=== PATIENT | female | born 1980 | race Caucasian/White ===

== ENCOUNTER 2019-07-26 05:11 | Inpatient (IN) | payer BC ==
--- NOTE | 2019-07-25 20:26 | PCM.LDHP ---
L&D History of Present Illness - General Date of Service: 07/26/19 Admit Problem/Dx: Admission Diagnosis/Problem Admission Diagnosis/Problem 07/25/19 20:11 Maria Isabel is a 39-year-old 3 para 1999 white female with an TASIA of 2019 who was admitted at 39-2/7 weeks on 07/26/2019 for an elective repeat section. Source of Information: Patient History Limitations: Reports: No Limitations - History of Present Illness Introduction:: Maria Isabel is a 39-year-old 3 para 1999 white female with an TASIA of 2019 who was admitted at 39-2/7 weeks on 07/26/2019 for an elective repeat section.She is a centering patient who has had a relatively unremarkable . Her TASIA of 07/31/2019 was determined by a certain last menstrual periods starting 10/24/2018 and supported by an ultrasound done 2018. The repeat section, procedure, risks, benefits, alternatives of care including attempted trial of labor after section for vaginal after section are all discussed with patient. She appears to understand, wishes to proceed and has signed a consent. 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 Patient had menarche at age 18. Cycles every 28-36 days and somewhat irregular. Her last menstrual period which was somewhat irregular was relatively certain started on 10/24/2018. She is not using any control at the time of conception. Her past deliveries include the followin. Female born 02/09/2011 at 40 weeks gestational age9 lbs. 4 oz. section done for malpresentation at [facility]. Child's name is Kitty. 2. Female infant born 05[birth year]21/2013 at 39-4/7 weeks gestational age after an attempt at vaginal at section-9 lbs. 5 oz. section done for failure to progress. Child's name is Pili course. Patient's first visit was at 11-3/7 weeks on 2018. Patient seen on a regular basis in the [facility]. Her weight gain was from 172.8 pounds to 218 pounds for a 46 pound weight increase. Her vital signs are stable throughout the . Her fundal height growth somewhat ahead of schedule at 41 cm fundal height. Estimated weight by clinical exam is 9 pounds. Patient has a history of genital herpes and genital warts. She's been on acyclovir 400 mg by mouth 3 times a day starting at 36 weeks gestational age. No genital warts have been noted. She underwent MRSA evaluation in June 2019 which returned negative. History of sections 2 with first one being done for malpresentation. She declined genetic testing with this . She plans to breast-feed. Strep screen is negative. Laboratory testing and shows blood to be a positive with a negative antibody screen. First hemoglobin is 11.8 g/dL. Platelets are 304,000. She is rubella immune. RPR is nonreactive. Hepatitis B surface antigen and HIV assays were both negative. Gonorrhea and chlamydia assays were both negative. Second trimester labs showed hemoglobin 11.9 g/dL. Platelets are 290,000. One- hour GTT was 82. Culture for MRSA was obtained on 06/27/2019 and was negative. Group B strep screen was negative. Allergies: 1. Augmentin tablets 2. Nickel. Medications: 1. Acyclovir 400 mg by mouth 3 times a day prophylactically since 36 weeks for suppression of genital HSV 2. Triamcinolone 0.1% cream used sparingly twice a day 3. vitamins 1 daily 4. Aspirin low-dose lens1 daily 5. Iron supplementation in the form of ferrous small fate 325 mg by mouth daily Past medical history: 1. Psoriasis 2. History of abnormal Pap smear 3. High blood pressure noted at the end of both previous pregnancies Past surgical history: 1. 2 2. Bunionectomy 3. Tonsillectomy Family history: Mother with a history of depression. Mother with breast and uterine cancer. Father with prostate cancer. Paternal grandmother with breast cancer. Paternal aunt and grandfather with lung cancer. No , bleeding, blood clotting problems or anesthesia problems noted in the family. Social history: Patient is . is Ronen she does not use any significant most alcohol, drugs or tobacco. 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 She lives in the [facility]. Review of systems: In general patient has no complaints. Baby has been active. Patient has not had any significant contractions. Skin: Negative Lungs: No infectious symptoms or shortness of breath Cardiovascular: No chest pain or exercise intolerance Breasts: Changes associated with only. Patient plans to breast-feed.. GI: Negative : Body habitus changes associated with . Musculoskeletal: Negative Neurological: Negative In general the patient is well-developed, well-nourished, pleasant female of stated age in no acute distress. On evaluation on 07/19/2019 blood pressures 138/69. Weight was 218 pounds increased from 172.8 pounds on first visit. Fundal height 1 cm. heart rate 136 beats per minutes. Patient's height is 5 feet 7. Prepregnancy body mass index is 25.4. Skin is warm dry without lesions. HEENT, neck and back within normal limits. Lungs are clear with good breath sounds in all lung dutta. Cardiovascular exam shows regular and rhythm without murmurs. Breast exam on first visit was unremarkable. It is not repeated at the time of her preoperative visit. Abdomen is gravid with fundal height of 41 cm. Baby in vertex presentation by Roscoe maneuver Genital exam declined by the patient. Extremities and neurological exam are grossly within normal limits. - Related Data Allergies/Adverse Reactions: Allergies Allergy/AdvReac Type Severity Reaction Status Date / Time nickel Allergy Rash Verified 05/21/15 00:03 Home Medications: Home Meds Vit No.124/Iron/Folic [ Vitamin Tablet] 1 tab PO DAILY [History] Acetaminophen/oxyCODONE [Percocet 325-5 MG] 2 tab PO Q4H PRN #30 tablet [Rx] Docusate Sodium [Colace] 100 mg PO Q12H PRN #30 cap 05/23/15 [Rx] Lanolin [Lansinoh HPA] 1 applic TOP ASDIRECTED PRN #30 tube 05/23/15 [Rx] Past Medical History Other Genitourinary History: Hx of HSV, HPV, and genital warts Other OB/BYN History: Groin furuncle Other Musculoskeletal History: Sciatica H&P Review of Systems - Review of Systems: Review Of Systems: See Below L&D Exam - Exam Exam: See Below Problem List Initiated/Reviewed/Updated: Yes Assessment/Plan Comment:: 1. 39-2/7 week intrauterine upon admission 07/26/2019 for elective repeat section. 2. Group B strep screen negative 3. Risk factors for the include: Age of 39, history of 2, history of genital herpes on prophylactic acyclovir, history of blood pressure elevation in previous pregnancies on aspirin therapy with this , history of mild anemia, history of cold induced bronchospasm. History of MRSA in the past. MRSA evaluation presently is negative. History of macrosomic babies 2 with size greater than dates with this . 4. Patient plans to breast-feed 5. Maria Isabel has received her influenza vaccination on 04/12/2019. T Dap was given on 05/10/2019. She is rubella immune. Hepatitis B vaccinations are given in October 2008. Plan: 1. Repeat lower uterine segment transverse section through Kiel skin incision under spinal anesthesia. Procedure, risks, benefits, alternatives of care including attempt at are all discussed with patient. She appears to understand, wishes to proceed and has signed a consent. 2. DVT prophylaxis with SCDs 3. Infection prophylaxis with Ancef 2 g IV preopwill give a test dose prior to full dose because of her history of Augmentin allergy. 4. Support breast-feeding decision 5. Evaluation with labs preop consisting of a CBC, type and screen and urinalysis along with an RPR. 6. DVT prophylaxis with SCDs.
[~2019-07-26 05:11] MED LIST: Sodium Chloride 0.9% 10 ML Syringe FLUSH PRN
[2019-07-26] MEDS: Lactated Ringers 1,000 ML IV SCH ×2 (05:52→06:26)
[2019-07-26] MEDS ORDERED: Metoclopramide 10 MG/2 ML SDV IVPUSH ONE (06:00)
[2019-07-26] MEDS ORDERED: Citric Acid/Sodium Citrate Solution 30 ML Cup PO ONE (06:00)
[2019-07-26] MEDS ORDERED: Bupivacaine 0.5% 30 ML SDV ONE (06:53)
[2019-07-26] MEDS ORDERED: ceFAZolin 2 GM in Premix Bag 1 BAG IV ONE (07:00)
[2019-07-26] MEDS ORDERED: Oxytocin/Lactated Ringers 20 UNIT/1,000 ML BAG IV SCH (07:00)
--- NOTE | 2019-07-26 07:02 | PCM.PREANE ---
Preanesthetic Assessment - Procedure Proposed Procedure: Repeat Section - Anesthesia/Transfusion/Family Hx Anesthesia History: Prior Anesthesia Without Reaction Family History of Anesthesia Reaction: No Transfusion History: No Prior Transfusion(s) - Review of Systems General: No Symptoms Pulmonary: Other (recovering after cold, stuffed nose, no cough or breathing difficulty) Cardiovascular: No Symptoms Gastrointestinal: No Symptoms Neurological: No Symptoms Other: Reports: None - Physical Assessment NPO Status Date: 07/25/19 NPO Status Time: 18:30 Vital Signs: Last Vital Signs Temp 98.2 F 07/26/19 05:27 Pulse 81 07/26/19 05:27 Resp 18 07/26/19 05:27 BP 135/80 07/26/19 05:27 Pulse Ox 98 07/26/19 05:27 Height: 1.7 m Weight: 78.381 kg ASA Class: 2 Mental Status: Alert & Oriented x3 Airway Class: Mallampati = 2 Dentition: Reports: Normal Dentition Thyro-Mental Finger Breadths: 4 Mouth Opening Finger Breadths: 3 ROM/Head Extension: Full - Lab Values: Laboratory Last Values WBC 9.48 K/mm3 (3.98-10.04) 07/26/19 05:50 RBC 3.97 M/mm3 (3.98-5.22) L 07/26/19 05:50 Hgb 12.5 gm/dl (11.2-15.7) 07/26/19 05:50 Hct 37.1 % (34.1-44.9) 07/26/19 05:50 MCV 93.5 fl (79.4-94.8) 07/26/19 05:50 MCH 31.5 pg (25.6-32.2) 07/26/19 05:50 MCHC 33.7 g/dl (32.2-35.5) 07/26/19 05:50 RDW Std Deviation 42.1 fL (36.4-46.3) 07/26/19 05:50 Plt Count 280 K/mm3 (182-369) 07/26/19 05:50 MPV 8.7 fl (9.4-12.3) L 07/26/19 05:50 Neut % (Auto) 66.6 % (34.0-71.1) 07/26/19 05:50 Lymph % (Auto) 19.3 % (19.3-51.7) 07/26/19 05:50 [place] % (Auto) 9.7 % (4.7-12.5) 07/26/19 05:50 Eos % (Auto) 3.2 (0.7-5.8) 07/26/19 05:50 Baso % (Auto) 0.3 % (0.1-1.2) 07/26/19 05:50 Neut # (Auto) 6.31 K/mm3 (1.56-6.13) H 07/26/19 05:50 Lymph # (Auto) 1.83 K/mm3 (1.18-3.74) 07/26/19 05:50 [place] # (Auto) 0.92 K/mm3 (0.24-0.36) H 07/26/19 05:50 Eos # (Auto) 0.30 K/mm3 (0.04-0.36) 07/26/19 05:50 Baso # (Auto) 0.03 K/mm3 (0.01-0.08) 07/26/19 05:50 - Allergies Allergies/Adverse Reactions: Allergies Allergy/AdvReac Type Severity Reaction Status Date / Time amoxicillin [From Augmentin] Allergy Rash Verified 07/26/19 05:55 clavulanic acid Allergy Rash Verified 07/26/19 05:55 [From Augmentin] nickel Allergy Rash Verified 05/21/15 00:03 - Blood Blood Available: Yes Product(s) Available: PRBC - Acknowledgements Anesthesia Type Planned: Spinal Pt an Appropriate Candidate for the Planned Anesthesia: Yes Alternatives and Risks of Anesthesia Discussed w Pt/Guardian: Yes Pt/Guardian Understands and Agrees with Anesthesia Plan: Yes PreAnesthesia Questionnaire Other Genitourinary History: Hx of HSV, HPV, and genital warts 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 has history of MRSA - Infectious Disease History Infectious Disease History: Reports: MRSA - Past Surgical History HEENT Surgical History: Reports: Tonsillectomy - SUBSTANCE USE Smoking Status *Q: Never Smoker Second Hand Smoke Exposure: No Recreational Drug Use History: No - HOME MEDS Home Medications: Home Meds Vit No.124/Iron/Folic [ Vitamin Tablet] 1 tab PO DAILY [History] Acyclovir 400 mg PO TID 07/26/19 [History] Triamcinolone Acetonide [Triamcinolone Acetonide 0.1% Oint] 1 applic TOP BID [History] - CURRENT (IN HOUSE) MEDS Current Meds: Current Medications Cefazolin Sodium/Dextrose 2 gm (/ Premix) 50 mls @ 100 mls/hr IV ONETIME ONE Stop: 07/26/19 07:29 Lactated Ringer's (Ringers, Lactated) 1,000 mls @ 125 mls/hr IV ASDIRECTED SILVESTRE Last Admin: 07/26/19 06:26 Dose: 125 mls/hr Oxytocin/Lactated Ringer's (Pitocin In Lr 20 Units/1,000 Ml) 20 unit in 1,000 mls @ 500 mls/hr IV TITRATE SILVESTRE; Protocol Sodium Chloride (Saline Flush) 10 ml FLUSH ASDIRECTED PRN PRN Reason: Keep Vein Open Discontinued Medications Bupivacaine HCl (Marcaine 0.5%) Confirm Administered Dose 30 ml .ROUTE .STK-MED ONE Stop: 07/26/19 06:54 Citric Acid/Sodium Citrate (Bicitra Solution) 30 ml PO ONETIME ONE Stop: 07/26/19 06:01 Metoclopramide HCl (Reglan) 10 mg IVPUSH ONETIME ONE Stop: 07/26/19 06:01
[2019-07-26] MEDS ORDERED: fentaNYL 100 MCG/2 ML SDV ONE (07:20)
[2019-07-26] MEDS ORDERED: Morphine PF 10 MG/10 ML SDV ONE (07:20)
[2019-07-26] MEDS ORDERED: diphenhydrAMINE 50 MG/ML SDV IVPUSH PRN ×2 (07:29→10:23)
[2019-07-26] MEDS ORDERED: fentaNYL 100 MCG/2 ML SDV IVPUSH PRN (07:29)
[2019-07-26] MEDS ORDERED: Ondansetron 4 MG/2 ML SDV IVPUSH PRN (07:29)
[2019-07-26] MEDS ORDERED: Lactated Ringers 1,000 ML ONE ×2 (08:03→08:50)
[2019-07-26] MEDS ORDERED: ceFAZolin 1 GM Vial ONE (08:06)
[2019-07-26] MEDS ORDERED: Oxytocin 10 Units/1 ML SDV ONE ×2 (08:06→08:19)
[2019-07-26] MEDS ORDERED: Ketorolac 30 MG/ML SDV ONE (08:27)
--- NOTE | 2019-07-26 08:45 | PCM.POSTAN ---
POST ANESTHESIA ASSESSMENT - MENTAL STATUS Mental Status: Alert, Oriented - VITAL SIGNS Vital Signs: Last Vital Signs Temp 98.2 F 07/26/19 05:27 Pulse 81 07/26/19 05:27 Resp 18 07/26/19 05:27 BP 135/80 07/26/19 05:27 Pulse Ox 98 07/26/19 05:27 Post op vitals 129/79, HR 79, RR 12, SPO2 98% T 97.3F - RESPIRATORY Respiratory Status: Respiratory Rate WNL, Airway Patent, O2 Saturation Stable, Supplemental Oxygen - CARDIOVASCULAR CV Status: Pulse Rate WNL, Blood Pressure Stable - GASTROINTESTINAL GI Status: No Symptoms - PAIN Pain Score: 0 (post SAB) - POST OP HYDRATION Hydration Status: Adequate & Stable
--- NOTE | 2019-07-26 08:56 | PCM.OPNOTE ---
- General Post-Op/Procedure Note Date of Surgery/Procedure: 07/26/19 Operative Procedure(s): Repeat lower uterine segment transverse section through Pfannenstiel skin incision Findings: Uterus, tubes and ovaries consistent with term . No abnormalities noted. Clear amniotic fluid. Baby in vertex presentation. Weight was 4600 g (10 lbs. 2 oz. Apgars 8 and 9. Baby born at 0801 hrs. male infant. Pre Op Diagnosis: 39 week intrauterine , history of previous section desire for repeat section Post-Op Diagnosis: Same with delivery of viable 4600 g male infant Apgars of 8 and 9 at 0801 hrs. 07/26/2019. Anesthesia Technique: Spinal Other Anesthesia Type: Marcaine 0.5% 20 mL subcutaneous local. Primary Surgeon: Israel Luciano Secondary Surgeon: Stuart Boyce Anesthesia Provider: Vargas Canales Reason Uptwist Spinner Was Necessary: Retraction, assistance, patient safety, quality of care. Fluid Replacement, Intraop: 2,000 Output, Urine Amount: 300 EBL in mLs: 800 Drain/Tube Comments:: Indwelling bladder catheter Condition: Good Free Text/Narrative:: Duration: Approximately 30 minutes Surgery duration: Procedure: The patient is appropriately consented. Patient was transferred to the room and placed in a sitting position. Spinal anesthesia was administered. After confirmation of adequate anesthesia patient was placed in a supine position with a wedge under her right side to facilitate left lateral positioning. The patient was prepped and draped in usual fashion after Guzman catheter was already placed . The anesthetic was checked and found to be adequate. 20 mL of Marcaine 0.5% was injected locally in the Pfannenstiel incision site. The Pfannenstiel skin incision was then made and carried down through skin, subcutaneous and fascial layers. The fascia was then undermined superiorly and inferiorly to allow for adequate operating room. The recti muscles midline and preperitoneal fat was bluntly dissected. Peritoneal cavity was entered longitudinally. The vesicouterine peritoneum was then incised transversely and bladder flap was developed. Myometrium was incised transversely to the level of the amniotic sac. This incision was extended bilaterally in a blunt fashion. The amniotic sac was then ruptured resulting in clear amniotic fluid. A hand is placed in the low uterine segment and the baby's head was brought forth through the incision. The baby was completely delivered using fundal pressure in a routine fashion. The nose and mouth were bulb suctioned. Baby's cord was clamped x2 cut and baby was handed off to attending tire regrooving machine operator Dr Paz. Placenta was expressed after cord blood was obtained. Uterus was then exteriorized to allow for easier closure. The cervix was assessed and found to be dilated adequately to allow egress of blood. The uterus was closed in 2 layers. The first layer a running locked suture of 0 Monocryl, the second layer a running locked vertical mattress suture of 0 Monocryl. [id number] suture was placed at mid incision to control 1 bleeder. Hemostasis confirmed at this time. Sponge instrument needle counts are correct. The uterus was returned to the abdominal cavity and lateral gutters were cleared of blood. Once again sponge needle counts are correct. The anterior abdominal wall was closed with a #1 PDS suture from angle to angle. The subcutaneous area was found to be free of any bleeders. interrupted sutures of 3-0 Monocryl were used to reapproximate the subcutaneous layer.Skin was closed with a running subcuticular stitch of 3-0 Monocryl in a vertical mattress suture fashion using a Dandy needle. Prineo mesh/glue was then applied to further approximate the incision. It should be noted that patient received 2 g of Ancef preoperatively for infection prophylaxis and had Pitocin infused after delivery of the placenta to facilitate uterine contraction. She also had sequential compression stockings in place for DVT prophylaxis. Patient was discharged from the operating room in satisfactory condition.
[2019-07-26] MEDS ORDERED: ePHEDrine 50 MG/ML SDV IVPUSH PRN (10:23)
[2019-07-26] MEDS ORDERED: Naloxone 0.4 MG/ML SDV IVPUSH PRN (10:23)
[2019-07-26] MEDS ORDERED: Docusate Sodium 100 MG Cap PO PRN (10:23)
[2019-07-26] MEDS ORDERED: Dextrose 5%-Lactated Ringers 1,000 ML IV SCH (10:23)
[2019-07-26] MEDS ORDERED: Ondansetron 4 MG/2 ML SDV IV PRN (10:23)
[2019-07-26] MEDS: Ibuprofen 800 MG Tab PO SCH (17:28)
[2019-07-26] MEDS: Acetaminophen/oxyCODONE 325-5 MG Tab PO PRN (19:15)
[2019-07-27] MEDS: Ibuprofen 800 MG Tab PO SCH ×3 (00:56→15:43)
[2019-07-27] MEDS: Acetaminophen/oxyCODONE 325-5 MG Tab PO PRN ×4 (04:51→21:17)
--- NOTE | 2019-07-27 07:42 | PCM48HPAN ---
Post Anesthesia Note - EVALUATION WITHIN 48HRS OF ANESTHETIC Vital Signs in Normal Range: Yes Patient Participated in Evaluation: Yes Respiratory Function Stable: Yes Airway Patent: Yes Cardiovascular Function Stable: Yes Hydration Status Stable: Yes Pain Control Satisfactory: Yes Nausea and Vomiting Control Satisfactory: Yes Mental Status Recovered: Yes Vital Signs: Last Vital Signs Temp 97.5 F 07/27/19 04:26 Pulse 81 07/27/19 04:26 Resp 16 07/27/19 06:00 BP 117/70 07/27/19 04:26 Pulse Ox 93 L 07/27/19 04:26
--- NOTE | 2019-07-27 08:02 | PCM.SN ---
- Free Text/Narrative Note: note: day 1 Patient is doing well in the period. Minimal lochia, voiding well, ambulated without problems. Nursing without concerns. Patient is afebrile, vital signs are stable Abdomen is flat, soft, uterus is below the umbilicus and is firm and nontender. Incision intact, and dry, Prineo mesh in place. Legs are nontender. Hemoglobin 11.5. Platelets 250,000. Assessment: /post day 1 with recovery going well. Plan: Routine /postoperative care. Patient be discharged home within the next 24-48 hours.
[2019-07-28] MEDS: Ibuprofen 800 MG Tab PO SCH ×2 (01:43→07:56)
[2019-07-28 04:33] VITALS: BP 124/71; PULSE 75
[2019-07-28] MEDS: Acetaminophen/oxyCODONE 325-5 MG Tab PO PRN ×2 (05:22→10:37)
--- NOTE | 2019-07-28 09:54 | PCM.DCSUM1 ---
Discharge Summary - Hospital Course Free Text/Narrative:: Maria Isabel is a 39-year-old 3 para 2000 white female with an TASIA of 2019 who was admitted at 39-2/7 weeks on 07/26/2019 for an elective repeat section.She is a centering patient who has had a relatively unremarkable . Her TASIA of 07/31/2019 was determined by a certain last menstrual periods starting 10/24/2018 and supported by an ultrasound done 2018. The repeat section, procedure, risks, benefits, alternatives of care including attempted trial of labor after section for vaginal after section are all discussed with patient. She appears to understand, wishes to proceed and has signed a consent. Patient delivered 10 lbs. 2 oz. male infant with Apgars of 8 and 9 on 07/26/2019. Postoperatively patient is doing well. She is nursing without problems, ambulating well. Pain is under good control with ibuprofen and Percocet. She is afebrile and vital signs are stable. She is desiring discharge home. Diagnosis: Stroke: No - Discharge Data Discharge Date: 07/28/19 Discharge Disposition: Home, Self-Care 01 Condition: Good - Referral to Home Health Primary Care Physician: Kaylyn Thompson NP - Patient Summary/Data Operative Procedure(s) Performed: Repeat lower uterine segment transverse section through Pfannenstiel skin incision - Patient Instructions Diet: Regular Diet as Tolerated (nursing) Activity: As Tolerated (No lifting greater than 15 pounds or driving a car 1 week.) Driving: Do Not Drive Showering/Bathing: May Shower Wound/Incision Care: Keep Operative Site/Wound Site Clean and Dry Notify Provider of: Fever, Increased Pain, Swelling and Redness, Nausea and/or Vomiting - Discharge Plan Home Medications: Home Meds Vit No.124/Iron/Folic [ Vitamin Tablet] 1 tab PO DAILY [History] Triamcinolone Acetonide [Triamcinolone Acetonide 0.1% Oint] 1 applic TOP BID [History] Acetaminophen/oxyCODONE [Percocet 325-5 MG] 2 tab PO Q4H PRN tablet 07/28/19 [ Rx] Ibuprofen [Motrin] 800 mg PO Q8H tablet 07/28/19 [Rx] Referrals: Israel Luciano MD [Physician] - (Return to clinicDr. Luciano2 weeks.) - Discharge Summary/Plan Comment DC Time >30 min.: No Discharge Summary/Plan Comment: Discharge instructions: 1. Discharge home 2. Diet, activity and follow-up discussed with patient. Recommend nursing diet with increased calories and calcium. 3. Precautions given concern increased pain, bleeding, temperature, signs/ symptoms of DVT/PE. 4. Medications per home medication was printed, discussed with and given to the patient. 5. Return to clinic-Dr. Luciano-[facility] in 2 weeks. Diagnosis: Term -delivered Condition: Good - Patient Data Vitals - Most Recent: Last Vital Signs Temp 36.9 C 07/27/19 20:36 Pulse 75 07/28/19 03:37 Resp 15 07/28/19 03:37 BP 124/71 07/28/19 03:37 Pulse Ox 98 07/28/19 03:37 Weight - Most Recent: 78.381 kg I&O - Last 24 hours: Intake & Output 07/27/19 07/28/19 07/28/19 22:59 06:59 14:59 Intake Total 180 Balance 180 Med Orders - Current: Current Medications Diphenhydramine HCl (Benadryl) 25 mg IVPUSH Q6H PRN PRN Reason: Itching or Nausea Docusate Sodium (Colace) 100 mg PO Q12H PRN PRN Reason: Constipation Last Admin: 07/28/19 07:11 Dose: 100 mg Ephedrine Sulfate (Ephedrine Sulfate) 5 mg IVPUSH SEECOMMENT PRN PRN Reason: Other Ibuprofen (Motrin) 800 mg PO Q8H [facility] Last Admin: 07/28/19 07:56 Dose: 800 mg Naloxone HCl (Narcan) 0.1 mg IVPUSH SEECOMMENT PRN PRN Reason: Respiratory Depression Ondansetron HCl (Zofran) 4 mg IV Q4H PRN PRN Reason: Nausea/Vomiting Last Admin: 07/26/19 10:44 Dose: 4 mg Oxycodone/Acetaminophen (Percocet 325-5 Mg) 2 tab PO Q4H PRN PRN Reason: Pain (severe 7-10) Last Admin: 07/28/19 05:22 Dose: 2 tab Discontinued Medications Bupivacaine HCl (Marcaine 0.5%) Confirm Administered Dose 30 ml .ROUTE .STK-MED ONE Stop: 07/26/19 06:54 Last Admin: 07/26/19 07:57 Dose: 20 ml Cefazolin Sodium (Ancef) Confirm Administered Dose 2 gm .ROUTE .STK-MED ONE Stop: 07/26/19 08:07 Citric Acid/Sodium Citrate (Bicitra Solution) 30 ml PO ONETIME ONE Stop: 07/26/19 06:01 Last Admin: 07/26/19 07:17 Dose: 30 ml Diphenhydramine HCl (Benadryl) 25 mg IVPUSH Q6H PRN PRN Reason: Pruritis Fentanyl (Sublimaze) Confirm Administered Dose 100 mcg .ROUTE .STK-MED ONE Stop: 07/26/19 07:21 Fentanyl (Sublimaze) 50 mcg IVPUSH Q5M PRN PRN Reason: Pain Cefazolin Sodium/Dextrose 2 gm (/ Premix) 50 mls @ 100 mls/hr IV ONETIME ONE Stop: 07/26/19 07:29 Lactated Ringer's (Ringers, Lactated) 1,000 mls @ 125 mls/hr IV ASDIRECTED SILVESTRE Last Admin: 07/26/19 06:26 Dose: 125 mls/hr Oxytocin/Lactated Ringer's (Pitocin In Lr 20 Units/1,000 Ml) 20 unit in 1,000 mls @ 500 mls/hr IV TITRATE SILVESTRE; Protocol Lactated Ringer's (Ringers, Lactated) Confirm Administered Dose 1,000 mls @ as directed .ROUTE .STK-MED ONE Stop: 07/26/19 08:04 Lactated Ringer's (Ringers, Lactated) Confirm Administered Dose 1,000 mls @ as directed .ROUTE .STK-MED ONE Stop: 07/26/19 08:51 Dextrose/Lactated Ringer's (Dextrose 5%-Lactated Ringers) 1,000 mls @ 125 mls/ hr IV ASDIRECTED SILVESTRE Stop: 07/26/19 18:22 Ketorolac Tromethamine (Toradol) Confirm Administered Dose 30 mg .ROUTE .STK- MED ONE Stop: 07/26/19 08:28 Metoclopramide HCl (Reglan) 10 mg IVPUSH ONETIME ONE Stop: 07/26/19 06:01 Last Admin: 07/26/19 07:17 Dose: 10 mg Morphine Sulfate (Duramorph Pf) Confirm Administered Dose 10 mg .ROUTE .STK-MED ONE Stop: 07/26/19 07:21 Ondansetron HCl (Zofran) 4 mg IVPUSH ONETIME PRN PRN Reason: Nausea/Vomiting Oxytocin (Pitocin) Confirm Administered Dose 20 unit .ROUTE .STK-MED ONE Stop: 07/26/19 08:07 Oxytocin (Pitocin) Confirm Administered Dose 20 unit .ROUTE .STK-MED ONE Stop: 07/26/19 08:20 Sodium Chloride (Saline Flush) 10 ml FLUSH ASDIRECTED PRN PRN Reason: Keep Vein Open
== END 2019-07-28 11:30 | disposition home or self-care (01) | DRG 540 ==
LOC: JD.OB 05:11
PROVIDERS: ADMIT Obstetrics & Gynecology; ATTEND Obstetrics & Gynecology
PROC: 10D00Z1 Extraction of Products of Conception, Low, Open Approach (ICD-10-PCS; principal; 2019-07-26)
DX: O34.211 Maternal care for low transverse scar from previous cesarean delivery (principal); Z37.0 Single live birth; Z3A.39 39 weeks gestation of pregnancy
CPT/HCPCS: 01961; 36415; 51701; 59025; 85025; 86592; 86850; 86900; 86901; 94762; A9270-GY; J0690; J1885; J2270; J2405; J2590; J2765; J3010; J3490; J7120

== ENCOUNTER 2020-02-20 02:31 | Emergency (ER) | payer BC ==
[2020-02-20 02:38] VITALS: BP 140/92; PULSE 65
--- NOTE | 2020-02-20 03:18 | EDM.PDOC ---
ED HPI GENERAL MEDICAL PROBLEM - General Chief Complaint: Abdominal Pain Stated Complaint: abdominal pain Time Seen by Provider: 02/20/20 03:08 - History of Present Illness INITIAL COMMENTS - FREE TEXT/NARRATIVE: 40-year-old female presents the emergency room with abdominal pain. This pain started couple hours ago. Is associated with nausea and vomiting. She describes the pain is mostly sharp and pressure on the left side. No pain on the right side. At times it radiates downward does not make it to her groin or into her leg. Has had associated nausea and vomiting with this. About a week and a half ago she was started on MiraLAX and a stool softener because she was having extra firm stools and thought to have rectal bleeding secondary to this, the patient has no other history of gastrointestinal problems. She denies fever or chills. Patient has had C-sections in the past but denies any other abdominal pelvic surgery. 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 has history of MRSA - Infectious Disease History Infectious Disease History: Reports: MRSA - Past Surgical History HEENT Surgical History: Reports: Tonsillectomy Female Surgical History: Reports: Section Social & Family History - Family History Family Medical History: Noncontributory - Tobacco Use Smoking Status *Q: Never Smoker Second Hand Smoke Exposure: No - Caffeine Use Caffeine Use: Reports: Coffee - Recreational Drug Use Recreational Drug Use: No ED ROS GENERAL - Review of Systems Review Of Systems: See Below Constitutional: Reports: No Symptoms HEENT: Reports: No Symptoms Respiratory: Reports: No Symptoms Cardiovascular: Reports: No Symptoms GI/Abdominal: Reports: Abdominal Pain, Nausea, Vomiting. Denies: Constipation, Diarrhea : Reports: Flank Pain. Denies: Discharge, Frequency, Urgency Musculoskeletal: Reports: No Symptoms Skin: Reports: No Symptoms Neurological: Reports: No Symptoms Psychiatric: Reports: No Symptoms Hematologic/Lymphatic: Reports: No Symptoms Immunologic: Reports: No Symptoms ED EXAM, GI/ABD - Physical Exam Exam: See Below Exam Limited By: No Limitations General Appearance: Alert, Moderate Distress (The patient is still having some pain but thinks it is getting a little better) Head: Atraumatic, Normocephalic Neck: Normal Inspection, Supple, Non-Tender, Full Range of Motion Respiratory/Chest: No Respiratory Distress, Lungs Clear, Normal Breath Sounds Cardiovascular: Regular Rate, Rhythm, No Edema, No Murmur GI/Abdominal Exam: Normal Bowel Sounds, Soft, Other (She has left-sided pain not worsened with palpation no rigidity rebound or guarding noted) Back Exam: Normal Inspection. No: CVA Tenderness (L), CVA Tenderness (R) Extremities: Normal Inspection, No Pedal Edema Neurological: Alert, Oriented, Normal Cognition Course - Vital Signs Last Recorded V/S: Last Vital Signs Temp 36.1 C 02/20/20 02:36 Pulse 65 02/20/20 02:36 Resp 20 02/20/20 02:36 BP 140/92 H 02/20/20 02:36 Pulse Ox 100 02/20/20 02:36 - Orders/Labs/Meds Orders: Active Orders 24 hr Category Date Time Status Lactated Ringers [Ringers, Lactated] 1,000 ml Med 02/20/20 03:30 Active IV ASDIRECTED Medication Orders Lactated Ringer's (Ringers, Lactated) 1,000 mls @ 125 mls/hr IV ASDIRECTED SILVESTRE Last Admin: 02/20/20 04:37 Dose: 125 mls/hr Documented by: KALINA Labs: Laboratory Tests 02/20/20 02/20/20 02/20/20 Range/Units 02:56 02:56 02:56 WBC 8.75 (3.98-10.04) K/mm3 RBC 4.26 (3.98-5.22) M/mm3 Hgb 12.7 (11.2-15.7) gm/dl Hct 38.4 (34.1-44.9) % MCV 90.1 D (79.4-94.8) fl MCH 29.8 (25.6-32.2) pg MCHC 33.1 (32.2-35.5) g/dl RDW Std Deviation 41.2 (36.4-46.3) fL Plt Count 292 (182-369) K/mm3 MPV 7.9 L (9.4-12.3) fl Neut % (Auto) 28.2 L (34.0-71.1) % Lymph % (Auto) 45.6 (19.3-51.7) % Pepin % (Auto) 9.3 (4.7-12.5) % Eos % (Auto) 15.7 H (0.7-5.8) Baso % (Auto) 1.0 (0.1-1.2) % Neut # (Auto) 2.47 (1.56-6.13) K/mm3 Lymph # (Auto) 3.99 H (1.18-3.74) K/mm3 Pepin # (Auto) 0.81 H (0.24-0.36) K/mm3 Eos # (Auto) 1.37 H (0.04-0.36) K/mm3 Baso # (Auto) 0.09 H (0.01-0.08) K/mm3 Manual Slide Review Abnormal smear Sodium 139 (136-145) mEq/L Potassium 3.9 (3.5-5.1) mEq/L Chloride 105 (98-107) mEq/L Carbon Dioxide 27 (21-32) mEq/L Anion Gap 10.9 (5-15) BUN 19 H (7-18) mg/dL Creatinine 0.9 (0.55-1.02) mg/dL Est Cr Clr Drug Dosing 88.57 mL/min Estimated GFR (MDRD) > 60 (>60) mL/min BUN/Creatinine Ratio 21.1 H (14-18) Glucose 113 H (74-106) mg/dL Calcium 8.2 L (8.5-10.1) mg/dL Total Bilirubin 0.2 (0.2-1.0) mg/dL AST 17 (15-37) U/L ALT 27 (14-59) U/L Alkaline Phosphatase 72 (46-116) U/L Total Protein 6.5 (6.4-8.2) g/dl Albumin 3.2 L (3.4-5.0) g/dl Globulin 3.3 gm/dL Albumin/Globulin Ratio 1.0 (1-2) Lipase 113 (73-393) U/L HCG, Qual Negative (NEGATIVE) Urine Color (Yellow) Urine Appearance (Clear) Urine pH (5.0-8.0) Ur Specific [place] (1.005-1.030) Urine Protein (Negative) Urine Glucose (UA) (Negative) Urine Ketones (Negative) Urine Occult Blood (Negative) Urine Nitrite (Negative) Urine Bilirubin (Negative) Urine Urobilinogen (0.2-1.0) Ur Leukocyte Esterase (Negative) Urine RBC (0-5) /hpf Urine WBC (0-5) /hpf Ur Squamous Epith Cells (0-5) /hpf Urine Bacteria (FEW) /hpf Urine Mucus (FEW) /hpf 02/20/20 Range/Units 03:30 WBC (3.98-10.04) K/mm3 RBC (3.98-5.22) M/mm3 Hgb (11.2-15.7) gm/dl Hct (34.1-44.9) % MCV (79.4-94.8) fl MCH (25.6-32.2) pg MCHC (32.2-35.5) g/dl RDW Std Deviation (36.4-46.3) fL Plt Count (182-369) K/mm3 MPV (9.4-12.3) fl Neut % (Auto) (34.0-71.1) % Lymph % (Auto) (19.3-51.7) % Pepin % (Auto) (4.7-12.5) % Eos % (Auto) (0.7-5.8) Baso % (Auto) (0.1-1.2) % Neut # (Auto) (1.56-6.13) K/mm3 Lymph # (Auto) (1.18-3.74) K/mm3 Pepin # (Auto) (0.24-0.36) K/mm3 Eos # (Auto) (0.04-0.36) K/mm3 Baso # (Auto) (0.01-0.08) K/mm3 Manual Slide Review Sodium (136-145) mEq/L Potassium (3.5-5.1) mEq/L Chloride (98-107) mEq/L Carbon Dioxide (21-32) mEq/L Anion Gap (5-15) BUN (7-18) mg/dL Creatinine (0.55-1.02) mg/dL Est Cr Clr Drug Dosing mL/min Estimated GFR (MDRD) (>60) mL/min BUN/Creatinine Ratio (14-18) Glucose (74-106) mg/dL Calcium (8.5-10.1) mg/dL Total Bilirubin (0.2-1.0) mg/dL AST (15-37) U/L ALT (14-59) U/L Alkaline Phosphatase (46-116) U/L Total Protein (6.4-8.2) g/dl Albumin (3.4-5.0) g/dl Globulin gm/dL Albumin/Globulin Ratio (1-2) Lipase (73-393) U/L HCG, Qual (NEGATIVE) Urine Color Yellow (Yellow) Urine Appearance Slt cloudy H (Clear) Urine pH 6.0 (5.0-8.0) Ur Specific [place] > or = 1.030 (1.005-1.030) Urine Protein 1+ H (Negative) Urine Glucose (UA) Negative (Negative) Urine Ketones Negative (Negative) Urine Occult Blood 3+ H (Negative) Urine Nitrite Negative (Negative) Urine Bilirubin Negative (Negative) Urine Urobilinogen 0.2 (0.2-1.0) Ur Leukocyte Esterase Negative (Negative) Urine RBC 50-75 H (0-5) /hpf Urine WBC 0-5 (0-5) /hpf Ur Squamous Epith Cells 5-10 H (0-5) /hpf Urine Bacteria Few (FEW) /hpf Urine Mucus Moderate H (FEW) /hpf Meds: Medications Generic Name Dose Route Start Last Admin Trade Name Freq PRN Reason Stop Dose Admin Lactated Ringer's 1,000 mls @ 125 mls/hr 02/20/20 03:30 02/20/20 04:37 Ringers, Lactated IV 125 mls/hr ASDIRECTED SILVESTRE Administration Discontinued Medications Generic Name Dose Route Start Last Admin Trade Name Freq PRN Reason Stop Dose Admin Fentanyl 50 mcg 02/20/20 03:21 02/20/20 04:45 Sublimaze IVPUSH 02/20/20 03:22 Not Given ONETIME ONE Lactated Ringer's 1,000 mls @ 999 mls/hr 02/20/20 03:22 02/20/20 03:30 Ringers, Lactated IV 02/20/20 04:22 999 mls/hr .BOLUS ONE Administration Ondansetron HCl 4 mg 02/20/20 03:21 02/20/20 03:30 Zofran IVPUSH 02/20/20 03:22 4 mg ONETIME ONE Administration - Re-Assessments/Exams Free Text/Narrative Re-Assessment/Exam: 02/20/20 04:48 The patient voided to give us a urine specimen and all of a sudden became asymptomatic. Her abdominal pain was gone at this time she has some microscopic hematuria but she still finishing her period but she is absolutely pain-free at this time. See above for all of her labs. But these are noncontributory white count is not elevated but she has a mild relative lymphocytosis. Chemistries suggest that maybe she is a little on the dry side. Discussed continued work-up including a abdominal CT which is difficult to justify given she is pretty much symptom-free at this time versus just going home and getting some rest. The patient would like to go home and get some rest. Departure - Departure Time of Disposition: 04:51 Disposition: Home, Self-Care 01 Clinical Impression: Left sided abdominal pain - Discharge Information Referrals: Kaylyn Thompson [employer] [Primary Care Provider] - Forms: ED Department Discharge Additional Instructions: Return to the emergency room with any questions problems or worsening symptoms. Follow-up with your regular provider the middle of this next week for recheck. Sepsis Event Note (ED) - Evaluation Sepsis Screening Result: No Definite Risk - Focused Exam Vital Signs: Vital Signs Temp Pulse Resp BP Pulse Ox 02/20/20 02:36 36.1 C 65 20 140/92 H 100 - My Orders Last 24 Hours: My Active Orders 02/20/20 03:30 Lactated Ringers [Ringers, Lactated] 1,000 ml IV ASDIRECTED - Assessment/Plan Last 24 Hours: My Active Orders 02/20/20 03:30 Lactated Ringers [Ringers, Lactated] 1,000 ml IV ASDIRECTED
[2020-02-20] MEDS ORDERED: Ondansetron 4 MG/2 ML SDV IVPUSH ONE (03:21)
[2020-02-20] MEDS ORDERED: fentaNYL 100 MCG/2 ML SDV IVPUSH ONE (03:21)
[2020-02-20] MEDS ORDERED: Lactated Ringers 1,000 ML IV ONE (03:22)
[2020-02-20] MEDS ORDERED: Lactated Ringers 1,000 ML IV SCH (03:30)
== END 2020-02-20 04:59 | disposition home or self-care (01) ==
LOC: JD.ED 02:31
DX: R10.9 Unspecified abdominal pain (principal); R11.2 Nausea with vomiting, unspecified; Z88.1 Allergy status to other antibiotic agents; Z91.09 Other allergy status, other than to drugs and biological substances
CPT/HCPCS: 36415; 80053; 81001; 83690; 84703; 85025; 96361; 96374; 99284; J2405; J7120

== ENCOUNTER 2022-06-25 22:03 | Emergency (ER) | payer BC ==
[2022-06-25 22:19] VITALS: BP 167/79; PULSE 103
== END 2022-06-26 01:30 ==
LOC: JD.ED 22:03
DX: Z53.21 Procedure and treatment not carried out due to patient leaving prior to being seen by health care provider (principal)
CPT/HCPCS: 93005